=== PATIENT | male | born 1960 | race Caucasian/White ===

== ENCOUNTER 2017-07-12 07:18 | Day surgery (SDC) | payer BC ==
[2017-07-12] MEDS ORDERED: LIDOCAINE HCL 1% MPF SOL ONE (07:23)
[2017-07-12] MEDS ORDERED: PROPOFOL 500 MG/50 ML EMU IV ONE (07:23)
[2017-07-12 07:39] VITALS: RESP 16
[2017-07-12 09:29] VITALS: BP 151/97; PULSE 63; TEMP 97.8; O2SAT 98
== END 2017-07-12 09:52 | disposition home or self-care (01) ==
LOC: SURG 07:18
PROVIDERS: ATTEND Surgery
DX: Z12.11 Encounter for screening for malignant neoplasm of colon (principal); Z86.010 Personal history of colon polyps; D12.2 Benign neoplasm of ascending colon; D12.3 Benign neoplasm of transverse colon
CPT/HCPCS: 99001; J2001; J2704